=== PATIENT | male | born 1950 | race Caucasian/White ===

== ENCOUNTER → 2021-09-21 | Outpatient (CLI) | payer BC ==
--- NOTE | 2021-09-21 08:41 | CT ---
EXAMINATION TYPE: CT chest w con DATE OF EXAM: 09/21/2021 COMPARISON: None HISTORY: Cough CT DLP: 547 mGycm Automated exposure control for dose reduction was used. CONTRAST: CT scan of the chest is performed with IV Contrast, patient injected with 100 mL of Isovue 300. FINDINGS: LUNGS: A few areas of scattered vague groundglass density within the periphery of both lungs could re flect an inflammatory versus postinflammatory change. No airspace consolidation noted. There is no pl eural effusion or pneumothorax seen. The tracheobronchial tree is patent. MEDIASTINUM: There are no greater than 1 cm hilar or mediastinal lymph nodes. No pericardial effusi on is seen. Thoracic aorta is of normal caliber. The heart is not enlarged. UPPER ABDOMEN: Nonobstructing calculus upper pole right kidney. OTHER: No additional significant abnormality is seen. IMPRESSION: A few areas of scattered vague groundglass density within the periphery of both lungs could reflect a n inflammatory versus postinflammatory change. No airspace consolidation noted.
== END | disposition home or self-care (01) ==
LOC: RADCTMAIN 07:08
PROVIDERS: ATTEND Internal Medicine Critical Care Medicine
DX: R05.3 Chronic cough (principal)
CPT/HCPCS: 82565; 84520; 71260; 36415; Q9967